=== PATIENT | female | born 1945 | race Caucasian/White ===

== ENCOUNTER 2022-05-24 10:35 | Outpatient (CLI) | payer MEDICARE, MEDICAID ==
[2022-05-24 12:39] LABS: Hemoglobin 10.4 g/dL (12.0-15.5)
[2022-05-24 12:45] LABS: Prothrombin Time 10.7 sec (9.5-12.1)
[2022-05-24 13:02] LABS: Anion Gap 16 mmol/L (10-20); BUN (Urea Nitrogen) 28 mg/dL (9.8-20.1); Calc. Creatinine Clearance 0 mL/min (70-130); Calcium 8.8 mg/dL (7.8-10.44); Carbon Dioxide 19 mmol/L (23-31); Chloride 111 mmol/L (98-107); Estimated GFR 59; Glucose 78 mg/dL (83-110); Potassium 5.6 mmol/L (3.5-5.1); Sodium 140 mmol/L (136-145)
== END 2022-05-24 10:36 | disposition home or self-care (01) ==
LOC: LABBT 10:35
PROVIDERS: ATTEND Internal Medicine Cardiovascular Disease
DX: Z01.818 Encounter for other preprocedural examination (principal); Z20.822 Contact with and (suspected) exposure to COVID-19
CPT/HCPCS: 80048; 85014; 85018; 85610; 87811; 93005; 93010

== ENCOUNTER 2022-05-27 06:37 | Observation (INO) | payer MEDICARE, MEDICAID ==
[2022-05-27] MEDS ORDERED: Iopamidol 370 76% 100 ML VIAL ONE (07:27)
[2022-05-27 07:52] LABS: #Eosinphils 0.1 thou/uL (0.0-0.7); #Monocytes 0.2 thou/uL (0.11-0.59); #Neutrophils 2.9 thou/uL (1.40-6.50); %Basophils 0.4 % (0.0-1.0); %Eosinophils 2.4 % (0.0-10.0); %Lymphocytes 23.2 % (21.0-51.0); %Monocytes 5.5 % (0.0-10.0); %Neutrophils 68.6 % (42.0-75.0); Mean Corpuscular HGB CONC 32.4 g/dL (32.0-36.0); Mean Corpuscular Hemoglobin 30.2 pg (27.0-31.0); Mean Corpuscular Volume 93.4 fL (78.0-98.0); Mean Platelet Volume 8.1 fL (7.4-10.4); Platelet Count 157 thou/uL (130-400); RBC Distribution Width 13.1 % (11.5-14.5); Red Blood Cell (RBC) Count 3.65 mill/uL (4.20-5.40); White Blood Cell (WBC) Count 4.3 thou/uL (4.8-10.8)
[2022-05-27 08:15] LABS: ALT (SGPT) 14 U/L (8-55); AST (SGOT) 24 U/L (5-34); Albumin 3.7 g/dL (3.4-4.8); Alkaline Phosphatase 87 U/L (40-110); Anion Gap 15 mmol/L (10-20); BUN (Urea Nitrogen) 32 mg/dL (9.8-20.1); Bilirubin, Total 0.2 mg/dL (0.2-1.2); Calc. Creatinine Clearance 43 mL/min (70-130); Calcium 8.9 mg/dL (7.8-10.44); Carbon Dioxide 19 mmol/L (23-31); Cardiac Risk 2.4 (Less than 4.5); Chloride 111 mmol/L (98-107); Cholesterol 136 mg/dl (< 200 Desired); Estimated GFR 52; Glucose 81 mg/dL (83-110); HDL Cholesterol 57 mg/dL (>60 Neg Risk); LDL Cholesterol, Calculated 67 mg/dL; Potassium 4.6 mmol/L (3.5-5.1); Protein, Total 7.7 g/dL (5.8-8.1); Sodium 140 mmol/L (136-145); Triglycerides 59 mg/dL (Less than 150)
[2022-05-27] MEDS ORDERED: Lidocaine 1% (PF) 30 ML VIAL ONE (09:57)
[2022-05-27] MEDS ORDERED: Midazolam HCl 2 mg/2 ml Vial ONE (10:30)
[2022-05-27] MEDS ORDERED: Fentanyl 100 MCG/2 ML VIAL ONE (10:30)
[2022-05-27] MEDS ORDERED: Heparin 10,000 UNITS/ 10 ML VIAL ONE (10:53)
[2022-05-27] MEDS ORDERED: hydrALAZINE 20 MG/ML VIAL ONE (11:29)
[2022-05-27] MEDS ORDERED: TICAGRELOR 90 MG TABLET ONE (11:46)
[2022-05-27] MEDS ORDERED: Acetaminophen 325 MG TAB PO PRN (16:42)
[2022-05-27] MEDS: Lisinopril 10 MG TAB PO SCH (21:04)
[2022-05-27] MEDS: Atorvastatin Calcium 10 MG TAB PO SCH (21:04)
[2022-05-27] MEDS: Hydroxychloroquine Sulfate 200 MG TAB PO SCH (21:04)
[2022-05-27] MEDS: TICAGRELOR 90 MG TABLET PO SCH (21:04)
[2022-05-27 21:28] VITALS: BMI 24.7
[2022-05-28 04:54] LABS: #Eosinphils 0.1 thou/uL (0.0-0.7); #Monocytes 0.2 thou/uL (0.11-0.59); #Neutrophils 3.1 thou/uL (1.40-6.50); %Basophils 0.6 % (0.0-1.0); %Eosinophils 1.8 % (0.0-10.0); %Lymphocytes 22.5 % (21.0-51.0); %Monocytes 5.4 % (0.0-10.0); %Neutrophils 69.6 % (42.0-75.0); Hemoglobin 8.4 g/dL (12.0-16.0); Mean Corpuscular HGB CONC 32.4 g/dL (32.0-36.0); Mean Corpuscular Hemoglobin 30.3 pg (27.0-31.0); Mean Corpuscular Volume 93.5 fL (78.0-98.0); Mean Platelet Volume 7.7 fL (7.4-10.4); Platelet Count 165 thou/uL (130-400); RBC Distribution Width 13.3 % (11.5-14.5); Red Blood Cell (RBC) Count 2.77 mill/uL (4.20-5.40); White Blood Cell (WBC) Count 4.4 thou/uL (4.8-10.8)
[2022-05-28 05:18] LABS: ALT (SGPT) 11 U/L (8-55); AST (SGOT) 19 U/L (5-34); Alkaline Phosphatase 55 U/L (40-110); Anion Gap 14 mmol/L (10-20); BUN (Urea Nitrogen) 31 mg/dL (9.8-20.1); Bilirubin, Total 0.3 mg/dL (0.2-1.2); Calc. Creatinine Clearance 39 mL/min (70-130); Calcium 8.3 mg/dL (7.8-10.44); Carbon Dioxide 18 mmol/L (23-31); Chloride 108 mmol/L (98-107); Estimated GFR 43; Globulin 3.1 g/dL (2.4-3.5); Glucose 85 mg/dL (83-110); Potassium 4.4 mmol/L (3.5-5.1); Protein, Total 6.1 g/dL (5.8-8.1); Sodium 136 mmol/L (136-145)
[2022-05-28] MEDS: Aspirin Chewable 81 MG TAB PO SCH (09:29)
[2022-05-28] MEDS: Hydroxychloroquine Sulfate 200 MG TAB PO SCH ×2 (09:29→20:35)
[2022-05-28] MEDS: Lisinopril 10 MG TAB PO SCH ×2 (09:29→20:35)
[2022-05-28] MEDS: TICAGRELOR 90 MG TABLET PO SCH ×2 (09:30→20:35)
[2022-05-28] MEDS ORDERED: Ferrous Sulfate 325 MG TAB PO SCH (11:15)
[2022-05-28] MEDS: Atorvastatin Calcium 10 MG TAB PO SCH (20:35)
[2022-05-29 05:15] LABS: #Eosinphils 0.1 thou/uL (0.0-0.7); #Lymphocytes 1.1 thou/uL (1.20-3.40); #Monocytes 0.2 thou/uL (0.11-0.59); #Neutrophils 2.7 thou/uL (1.40-6.50); %Basophils 0.3 % (0.0-1.0); %Lymphocytes 26.9 % (21.0-51.0); %Monocytes 5.7 % (0.0-10.0); %Neutrophils 64.1 % (42.0-75.0); Hemoglobin 7.9 g/dL (12.0-16.0); Mean Corpuscular HGB CONC 33.4 g/dL (32.0-36.0); Mean Corpuscular Hemoglobin 30.9 pg (27.0-31.0); Mean Corpuscular Volume 92.6 fL (78.0-98.0); Mean Platelet Volume 7.8 fL (7.4-10.4); Platelet Count 136 thou/uL (130-400); RBC Distribution Width 13.3 % (11.5-14.5); Red Blood Cell (RBC) Count 2.57 mill/uL (4.20-5.40); White Blood Cell (WBC) Count 4.2 thou/uL (4.8-10.8)
[2022-05-29] MEDS ORDERED: Ferrous Sulfate 325 MG TAB PO SCH (08:00)
[2022-05-29] MEDS: Lisinopril 10 MG TAB PO SCH (08:40)
[2022-05-29] MEDS: TICAGRELOR 90 MG TABLET PO SCH (08:40)
[2022-05-29] MEDS: Aspirin Chewable 81 MG TAB PO SCH (08:40)
[2022-05-29] MEDS: Hydroxychloroquine Sulfate 200 MG TAB PO SCH (08:40)
[2022-05-29] MEDS ORDERED: Furosemide 20 MG/2 ML VIAL SLOW IVP SCH (10:00)
[2022-05-29 15:59] VITALS: BP 152/67; TEMP 98.4
== END 2022-05-29 18:55 | disposition home or self-care (01) ==
LOC: CCL 06:37 → 2SW 16:40
PROVIDERS: ADMIT Internal Medicine Cardiovascular Disease; ATTEND Internal Medicine Cardiovascular Disease
PROC: 027034Z Dilation of Coronary Artery, One Artery with Drug-eluting Intraluminal Device, Percutaneous Approach (ICD-10-PCS; principal; 2022-05-27)
PROC: 4A023N7 Measurement of Cardiac Sampling and Pressure, Left Heart, Percutaneous Approach (ICD-10-PCS; 2022-05-27)
PROC: B2111ZZ Fluoroscopy of Multiple Coronary Arteries using Low Osmolar Contrast (ICD-10-PCS; 2022-05-27)
DX: I35.0 Nonrheumatic aortic (valve) stenosis (principal); I25.10 Atherosclerotic heart disease of native coronary artery without angina pectoris; S30.1XXA Contusion of abdominal wall, initial encounter; D62 Acute posthemorrhagic anemia; I10 Essential (primary) hypertension; M06.9 Rheumatoid arthritis, unspecified; I44.7 Left bundle-branch block, unspecified; J44.9 Chronic obstructive pulmonary disease, unspecified; Z87.891 Personal history of nicotine dependence; Z79.899 Other long term (current) drug therapy; Z88.1 Allergy status to other antibiotic agents
CPT/HCPCS: 36430; 76936; 80053 ×2; 80061; 85025 ×3; 85347 ×2; 86850; 86870; 86900; 86901; 86902; 86905; 86920; 86922; 93005 ×3; 93460; C1769; C9600; P9016; 36415; 92928; 93010; 96374; 99152; 99153; C1751; C1874; G0378; J0360; J1644; J1940; J2001; J2250; J3010; Q9967

== ENCOUNTER 2022-11-01 08:57 | Emergency (ER) | payer MEDICARE, MEDICAID ==
[2022-11-01 09:18] LABS: Actual Bicarbonate (HCO3v) 25 mEq/L (22-28); Analyzer IN Cardio ER; Calcium, Ionized (venous) 1.01 mmol/L (1.16-1.32); Chloride (VBG) 104 mmol/L (98-106); Hemoglobin (Hb) 8.3 g/dL (11.7-16.1); Potassium (VBG) 3.72 mmol/L (3.70-5.30); Sodium 135.4 mmol/L (133-146); pH (venous) 7.46 (7.32-7.43)
[2022-11-01 09:35] LABS: #Lymphocytes 0.3 thou/uL (1.20-3.40); #Monocytes 0.1 thou/uL (0.11-0.59); #Neutrophils 2.5 thou/uL (1.40-6.50); %Basophils 0.2 % (0.0-1.0); %Eosinophils 0.5 % (0.0-10.0); %Lymphocytes 11.3 % (21.0-51.0); %Monocytes 4.4 % (0.0-10.0); %Neutrophils 83.5 % (42.0-75.0); Hemoglobin 8.1 g/dL (12.0-16.0); Mean Corpuscular HGB CONC 31.1 g/dL (32.0-36.0); Mean Corpuscular Hemoglobin 28.9 pg (27.0-31.0); Mean Platelet Volume 7.1 fL (7.4-10.4); Platelet Count 183 10x3/uL (130-400); RBC Distribution Width 13.1 % (11.5-14.5); Red Blood Cell (RBC) Count 2.81 mill/uL (4.20-5.40)
[2022-11-01 09:46] LABS: INR-International Normal Ratio 1.1; PTT 55.3 sec (22.9-36.1); Prothrombin Time 14.6 sec (12.0-14.7)
[2022-11-01 09:57] LABS: ALT (SGPT) 9 U/L (8-55); AST (SGOT) 21 U/L (5-34); Albumin 2.6 g/dL (3.4-4.8); Alkaline Phosphatase 99 U/L (40-110); Anion Gap 19 mmol/L (10-20); BUN (Urea Nitrogen) 30 mg/dL (9.8-20.1); Bilirubin, Total 0.6 mg/dL (0.2-1.2); Calc. Creatinine Clearance 0 mL/min (70-130); Calcium 7.7 mg/dL (7.8-10.44); Carbon Dioxide 20 mmol/L (23-31); Chloride 105 mmol/L (98-107); Estimated GFR 48; Globulin 3.1 g/dL (2.4-3.5); Glucose 91 mg/dL (83-110); Magnesium 1.4 mg/dL (1.6-2.6); Potassium 3.9 mmol/L (3.5-5.1); Protein, Total 5.7 g/dL (5.8-8.1); Sodium 140 mmol/L (136-145)
[2022-11-01] MEDS ORDERED: Magnesium Oxide 400 MG TAB PO SCH (10:30)
== END 2022-11-01 10:38 | disposition home or self-care (01) ==
LOC: ERS 08:57
DX: M71.22 Synovial cyst of popliteal space [Baker], left knee (principal); D64.9 Anemia, unspecified; J90 Pleural effusion, not elsewhere classified; E83.42 Hypomagnesemia; I50.9 Heart failure, unspecified; J44.9 Chronic obstructive pulmonary disease, unspecified
CPT/HCPCS: 36415; 71045; 80053; 82805; 83735; 83880; 84484; 85025; 85610; 85730; 93005; 94760

== ENCOUNTER 2022-12-07 09:17 | Emergency (ER) | payer MEDICARE, MEDICAID ==
[2022-12-07 10:07] LABS: #Lymphocytes 0.5 thou/uL (1.20-3.40); #Monocytes 0.2 thou/uL (0.11-0.59); #Neutrophils 3.6 thou/uL (1.40-6.50); %Basophils 0.6 % (0.0-1.0); %Eosinophils 0.6 % (0.0-10.0); %Monocytes 4.4 % (0.0-10.0); %Neutrophils 83.4 % (42.0-75.0); Hemoglobin 6.5 g/dL (12.0-16.0); Mean Corpuscular HGB CONC 31.6 g/dL (32.0-36.0); Mean Corpuscular Hemoglobin 28.3 pg (27.0-31.0); Mean Corpuscular Volume 89.5 fl (78.0-98.0); Mean Platelet Volume 7.8 fL (7.4-10.4); Platelet Count 128 10x3/uL (130-400); RBC Distribution Width 14.9 % (11.5-14.5); Red Blood Cell (RBC) Count 2.29 mill/uL (4.20-5.40); White Blood Cell (WBC) Count 4.4 10x3/uL (4.8-10.8)
[2022-12-07 10:32] LABS: ALT (SGPT) 7 U/L (8-55); AST (SGOT) 30 U/L (5-34); Albumin 2.6 g/dL (3.4-4.8); Alkaline Phosphatase 144 U/L (40-110); Anion Gap 15 mmol/L (10-20); BUN (Urea Nitrogen) 31 mg/dL (9.8-20.1); Bilirubin, Total 0.4 mg/dL (0.2-1.2); Calc. Creatinine Clearance 0 mL/min (70-130); Calcium 7.6 mg/dL (7.8-10.44); Carbon Dioxide 21 mmol/L (23-31); Chloride 104 mmol/L (98-107); Estimated GFR 37; Glucose 77 mg/dL (83-110); Potassium 4.2 mmol/L (3.5-5.1); Protein, Total 5.6 g/dL (5.8-8.1); Sodium 136 mmol/L (136-145)
[2022-12-07 11:27] LABS: Iron 17 ug/dL (50-170); Iron Binding Capacity, Total 144 mcg/dL (265-497)
[2022-12-07 11:36] LABS: PTT 50.5 sec (22.9-36.1)
[2022-12-07 11:38] LABS: INR-International Normal Ratio 1.2; Prothrombin Time 15.5 sec (12.0-14.7)
== END 2022-12-07 14:07 | disposition home or self-care (01) ==
LOC: ERS 09:17
DX: D50.0 Iron deficiency anemia secondary to blood loss (chronic) (principal); I50.9 Heart failure, unspecified; J44.9 Chronic obstructive pulmonary disease, unspecified; M06.9 Rheumatoid arthritis, unspecified; I25.10 Atherosclerotic heart disease of native coronary artery without angina pectoris
CPT/HCPCS: 36430; 80053; 82728; 83540; 83550; 85025; 85610; 85730; 86850; 86870; 86900; 86901; 86902; 86920; 86922; 99284; P9016; 36415